=== PATIENT | female | born 1955 | race Caucasian/White ===

== ENCOUNTER 2023-11-19 14:36 | Emergency (ER) | payer OTHER ==
[~2023-11-19] VITALS: Ht 177.8 cm; Wt 83.0 kg
[2023-11-19 14:47] VITALS: BP 133/69; PULSE 62; RESP 16; TEMP 98.7; O2SAT 96
[2023-11-19 15:49] LABS: BASOPHILS % (AUTO) 0.5 % (0.0-2.0); EOSINOPHILS # (AUTO) 0.2 K/uL (0-0.4); EOSINOPHILS % (AUTO) 2.5 % (0.0-4.0); HEMATOCRIT 38.8 % (36-48); HEMOGLOBIN 12.9 g/dL (12.0-16.0); LYMPHOCYTES # (AUTO) 2.8 K/uL (2.5-16.5); LYMPHOCYTES % (AUTO) 41.8 % (20.5-51.1); MEAN CORPUSCULAR HEMOGLOBIN 29 pg (27-31); MEAN CORPUSCULAR HGB CONC 33 g/dL (33-37); MONOCYTES # (AUTO) 0.5 K/uL (0.8-1.0); MONOCYTES % (AUTO) 7.4 % (1.7-9.3); NEUTROPHILS # (AUTO) 3.2 K/uL (1.8-7.7); NEUTROPHILS % (AUTO) 47.8 % (42.2-75.2); PLATELET COUNT (AUTO) 234 K/uL (140-450); RED BLOOD CELL COUNT(AUTO) 4.46 MIL/uL (4.20-5.40); RED CELL DISTRIBUTION WIDTH 14.2 % (11.6-13.7); WHITE BLOOD COUNT (AUTO) 6.8 K/uL (4.8-10.8)
[2023-11-19] MEDS ORDERED: VALA1TAB2 PO (15:52)
[2023-11-19] MEDS ORDERED: PRED20TA5 PO (15:52)
[2023-11-19 16:02] LABS: ANION GAP 9.4 (8-16); CALCIUM 7.8 mg/dL (8.5-10.1); CREATININE 0.9 mg/dL (0.6-1.3); POTASSIUM 4.4 mmol/L (3.5-5.1)
[2023-11-19 16:11] LABS: D-DIMER < 100 ng/ml (0-400)
[2023-11-19 16:24] LABS: INR 0.98 (0.8-1.2); PROTHROMBIN TIME 10.3 secs (10.8-13.4)
[2023-11-19] MEDS: CALCIUM CARB 600 MG TAB PO ONE (17:03)
[2023-11-19 17:14] LABS: ALANINE AMINOTRANSFERASE 22 U/L (12-78); ALBUMIN 2.9 g/dL (3.4-5.0); ALKALINE PHOSPHATASE 72 U/L (50-136); ASPARTATE AMINOTRANSFERASE 27 U/L (15-37); BILIRUBIN,DIRECT 0.1 mg/dL (0.0-0.3); TOTAL BILIRUBIN 0.3 mg/dL (0.0-1.0); TOTAL PROTEIN, SERUM 5.7 g/dL (6.4-8.2)
[2023-11-19 17:30] VITALS: BP 135/64; PULSE 44; RESP 19; TEMP 98.2; O2SAT 97
[2023-11-22] MEDS ORDERED: VALA1TAB2 PO (10:49)
[2023-11-22] MEDS ORDERED: PRED20TA5 PO (10:49)
== END 2023-11-19 17:30 | disposition home or self-care (01) ==
LOC: MED 14:36
DX: G51.0 Bell's palsy (principal); E83.51 Hypocalcemia; Z79.899 Other long term (current) drug therapy
CPT/HCPCS: 36415; 70450; 71045; 80048; 80076; 83880; 84484; 85025; 85379; 85610; 85730; 93005; 99285; Q0092